=== PATIENT | male | born 1975 | race Caucasian/White ===

== ENCOUNTER 2020-09-01 11:52 | Emergency (ER) | payer BC, OTHER, SELFPAY ==
[2020-09-01] VITALS (11 sets, daily range): BP systolic 118–187; BP diastolic 56–83; PULSE 62–88; RESP 12–14; TEMP 36.2; O2SAT 93–98; BMI 33.0
--- NOTE | 2020-09-01 | DI.MRI.S_ITS ---
PROCEDURE: MR THORACIC SPINE WO/W CON INDICATIONS: BACK PAIN TECHNIQUE: Noncontrast sagittal T1 spin echo and T2 fast spin echo, sagittal STIR, axial T1 and T2 fast spin echo through the thoracic spine. After the administration of contrast, axial and sagittal T1 spin echo with fat saturation through the thoracic spine. COMPARISON: [facility], , MR LUMBAR SPINE WO/W CON, 09/01/2020, 13:20. FINDINGS: Image quality: Excellent. Alignment and curvature: There is normal bony alignment. Marrow: Marrow is of normal overall signal. Increased T1 and T2 signal is present at T8 most suggestive of hemangioma. No acute vertebral body compression fractures. Spinal cord: Visualized spinal cord is of normal signal and size, without abnormal enhancement. Paraspinous soft tissues: No paravertebral masses or abnormal enhancement. Miscellaneous: The foramina appear widely patent at all scanned levels. Minimal disc bulges noted at T2-3, , T4-5, T5-6, posterior left posterior paracentral protrusion is present at T3-4, posterior central protrusion at T7-8. There is indentation of the anterior thecal sac as well as cord at T3-4. Similar more prominent appearance is noted at T7-8 with overall [id number] spinal stenosis. IMPRESSION: Multilevel disc bulges and protrusions most prominent at T3-4 and T7-8. Dictated by: Lubna Navarro M.D. on 09/01/2020 at 13:45 Approved by: Lubna Navarro M.D. on 09/01/2020 at 14:23
--- NOTE | 2020-09-01 12:49 | PC.NURSE ---
patient was moving stuff at home on Tuesday. 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 woke up Tuesday and lost bladder control. His leg pain is going down his left leg and he feels lesser sensation in his left leg.
--- NOTE | 2020-09-01 13:14 | ED_ITS ---
HPI - Back Pain/Injury General Chief Complaint: Back Pain/Injury Stated Complaint: Back pain possible slipped disc Time Seen by Provider: 09/01/20 13:00 Source: patient Mode of arrival: Ambulatory Limitations: no limitations History of Present Illness HPI Narrative: Patient is a 45-year-old male who over the past several years has had intermittent episodes with lower back pain. He has seen his primary doctor for this and was told to take ibuprofen. At the end of last week he was at home working when he was putting in a dresser drawer and had a sudden onset of left- sided lower back pain. No fevers. Went to an outside facility over the weekend and reported to have x-rays performed and was sent home with pain medication. He states that his symptoms have not improved and 1 time over the weekend he had an episode of urinary incontinence. He states that the pain is bilateral but is left more than right. He has taken a couple doses of the pain medication with minimal improvement. Related Data Previous Rx's Medication Instructions Recorded cyclobenzaprine 10 mg PO TID PRN #14 tab 09/01/20 hydrocodone-acetaminophen 1 tab PO Q4-6H PRN #10 tab 09/01/20 prednisone 40 mg PO DAILY 3 Days #6 tab 09/01/20 Allergies Allergy/AdvReac Type Severity Reaction Status Date / Time No Known Drug Allergies Allergy Verified 09/01/20 12:04 Review of Systems Constitutional Constitutional: Denies fever(s) and Denies headache(s) ENT Ears, Nose, Mouth, and Throat: Denies headache(s) Cardiovascular Cardiovascular: Denies chest pain and Denies dyspnea Respiratory Respiratory: Denies dyspnea Gastrointestinal Gastrointestinal: Denies abdominal pain Genitourinary Genitourinary: Reports urinary incontinence Genitourinary: Reports urinary incontinence Musculoskeletal Musculoskeletal: Reports back pain, Reports numbness, Reports radiating pain into limb and Reports tingling Integumentary/Breasts Skin/Breast: Denies rash Neurologic Neurologic: Denies behavioral changes, Denies confusion, Denies headache(s), Reports numbness and Reports tingling Psychiatric Psychiatric: Denies behavioral changes and Denies confusion Hematologic/Lymphatic On Anticoagulants: No Allergic/Immunologic Allergic/Immunologic: Denies urticaria Patient History Medical History IBS (irritable bowel syndrome) Social History Smoking Status: Former smoker Smoking Status: Former smoker alcohol intake frequency: 0-2 drinks per day Substance Use Type: does not use Exam Initial Vital Signs Initial Vital Signs: Vital Signs Temperature 97.1 F L 09/01/20 12:01 Pulse Rate 62 09/01/20 12:01 Respiratory Rate 14 09/01/20 12:01 Blood Pressure 187/78 H 09/01/20 12:01 Pulse Oximetry 98 09/01/20 12:01 Const General: cooperative and comfortable Limitations: mental status not altered HENMT Head: normal to inspection and normocephalic Resp Effort & Inspection: normal respiratory effort Cardio Rate: regular rate GI Inspection: non-distended Palpation: soft Back/Spine/Pelvis Cervical Spine: No cervical muscular tenderness Thoracic/Lumbar Spine: No paraspinal tenderness, No thoracic spinal tenderness and No lumbar spinal tenderness Skin Lesions: no lesions Rashes: no rashes Neuro General: patient alert, patient awake and patient oriented x3 Cognition: normal cognition Speech: speech normal Sensory Exam: no sensory deficits noted (Decreased sensation left lower extremity and L5-S1 distribution) Extrem General: normal to inspection, capillary refill normal and No edema Psych Appearance: grossly normal and well kempt Course Orders Ordered: ED Orders 09/01/20 13:15 MR lumbar spine wo/w con Stat Discontinued Medications Hydromorphone HCl (Hydromorphone 1 Mg Inj) 1 mg IV NOW ONE Stop: 09/01/20 13:17 Last Admin: 09/01/20 13:24 Dose: 1 mg Documented by: RAJIV Ketorolac Tromethamine (Ketorolac 60 Mg/2 Ml Vial) 30 mg IV NOW ONE Stop: 09/01/20 13:17 Last Admin: 09/01/20 13:25 Dose: 30 mg Documented by: RAJIV Ondansetron HCl (Ondansetron 4 Mg/2 Ml Inj) 4 mg IV NOW ONE Stop: 09/01/20 13:17 Last Admin: 09/01/20 13:25 Dose: 4 mg Documented by: RAJIV Vital Signs Vital signs: Vital Signs - 8 hr 09/01/20 12:01 09/01/20 12:36 09/01/20 12:46 Temperature 97.1 F L Pulse Rate 62 75 71 Respiratory Rate 14 Blood Pressure 187/78 H 131/83 Pulse Oximetry 98 96 96 09/01/20 13:00 09/01/20 13:30 09/01/20 14:20 Temperature Pulse Rate 73 70 88 Respiratory Rate Blood Pressure 132/75 Pulse Oximetry 96 95 93 09/01/20 14:22 09/01/20 14:30 09/01/20 15:00 Temperature Pulse Rate 82 73 72 Respiratory Rate Blood Pressure 125/68 118/64 Pulse Oximetry 95 94 95 09/01/20 15:01 09/01/20 15:18 Temperature Pulse Rate 73 71 Respiratory Rate 12 Blood Pressure 118/56 L 118/56 L Pulse Oximetry 94 98 MDM - Back Pain/Injury Imaging Data Thoracic spine MRI: Radiologist's Impression: [address] [id number] Resonance ReportSigned Patient: Travis Morataya CMR#: [id number]: 1975Acct:[id number]/Sex: 45 / MDate of Service: 09/01/20Loc: EDAccession Number: [id number] Procedure: MR thoracic spine wo/w con Ordering Provider: Jordan Nogueira D.O. PROCEDURE: MR THORACIC SPINE WO/W CON INDICATIONS: BACK PAIN TECHNIQUE: Noncontrast sagittal T1 spin echo and T2 fast spin echo, sagittal STIR, axial T1 and T2 fast spin echo through the thoracic spine. After the administration of contrast, axial and sagittal T1 spin echo with fat saturation through the thoracic spine. COMPARISON: [facility], , MR LUMBAR SPINE WO/W CON, 09/01/2020, 13:20. FINDINGS: Image quality: Excellent. Alignment and curvature: There is normal bony alignment. Marrow: Marrow is of normal overall signal. Increased T1 and T2 signal is present at T8 most suggestive of hemangioma. No acute vertebral body compression fractures. Spinal cord: Visualized spinal cord is of normal signal and size, without abnormal enhancement. Paraspinous soft tissues: No paravertebral masses or abnormal enhancement. Miscellaneous: The foramina appear widely patent at all scanned levels. Minimal disc bulges noted at T2-3, , T4-5, T5-6, posterior left posterior paracentral protrusion is present at T3-4, posterior central protrusion at T7-8. There is indentation of the anterior thecal sac as well as cord at T3-4. Similar more prominent appearance is noted at T7-8 with overall [id number] spinal stenosis. IMPRESSION: Multilevel disc bulges and protrusions most prominent at T3-4 and T7-8. Dictated by: Lubna Navarro M.D. on 09/01/2020 at 13:45 Approved by: Lubna Navarro M.D. on 09/01/2020 at 14:23 Lumbar spine MRI: Radiologist's Impression: [address] [id number] Resonance ReportSigned Patient: Travis Morataya CMR#: [id number]: 1975Acct:[id number]/Sex: 45 / MDate of Service: 09/01/20Loc: EDAccession Number: [id number] Procedure: MR lumbar spine wo/w con Ordering Provider: Jordan Nogueira D.O. PROCEDURE: MR LUMBAR SPINE WO/W CON INDICATIONS: low back pain with bladder incontinence eval for cauda equin TECHNIQUE: Noncontrast sagittal T1 spin echo and T2 fast spin echo, sagittal STIR, axial T1 and T2 fast spin echo through the lumbar spine. In cases with scoliosis, additional coronal T2 fast spin echo may be performed. After the administration of contrast, sagittal and axial T1 spin echo with fat saturation through the lumbar spine. COMPARISON: None. FINDINGS: Image quality: Excellent. Alignment and curvature: Normal lumbar vertebral body height and alignment. Marrow: No suspicious focal marrow signal abnormality. No bone marrow edema. No abnormal enhancement within the vertebral column after IV administration of contrast. Spinal cord: Normal position and appearance of the conus. No abnormal intradural or extradural enhancement on postcontrast images. Regional soft tissues: No paravertebral masses or abnormal enhancement. T12-L1: No spinal canal or neural foraminal stenosis. No significant degenerative change. L1-L2: No spinal canal or neural foraminal stenosis. No significant degenerative change. L2-L3: No spinal canal or neural foraminal stenosis. No significant degenerative change. L3-L4: No spinal canal or neural foraminal stenosis. Disc bulge minimally flattens the ventral thecal sac without mass effect upon the traversing L4 nerve roots. Mild facet osteoarthropathy. L4-L5: Diffuse disc bulge with a superimposed broad-based posterior disc protrusion, most pronounced in the left paracentral and left subarticular zones. Mild displacement of the descending L5 nerve roots within both subarticular zones, left greater than right (series 6, image 31, for example). No neural foraminal stenosis. Mild facet osteoarthropathy. L5-S1: Diffuse disc bulge with a superimposed broad-based posterior disc extrusion in the left paracentral and left subarticular zones. Displacement of the descending left S1 nerve roots within the left subarticular zone (series 6, image 36, and series 3, image 10). No neural foraminal stenosis. IMPRESSION: Degenerative changes at L4-L5 and L5-S1 with mass effect upon the descending of left L5 and S1 nerve roots at these levels, respectively, as described above. Correlate for any corresponding radicular symptoms. Annular fissures of the L4-L5 disc and L5-S1 disc, potential sources of nonrad icular axial back pain. No abnormal enhancement or other finding to indicate metastatic disease in the lumbar spine. Dictated by: Messi Handy M.D. on 09/01/2020 at 14:28 Approved by: Messi Handy M.D. on 09/01/2020 at 14:32 [facility] Narrative Medical decision making narrative: Lower back pain bilateral with left being gr eater than right. The radiculopathy in his lower extremities consistent with the L5-S1 nerve root distribution this does correspond to the findings on the MRI. This was ordered secondary to the episode of urinary incontinence however there is no signs of cauda equina. Had a long discussion with him and his regarding his symptoms. Will send home on prednisone. We did discuss use of anti-inflammatories afterwards. Will send home with muscle relaxers but he is instructed to stop taking these if they are not improving any of his symptoms. Also refill some of his pain medication. Instructed to contact his primary provider for a follow-up to discuss further evaluation such as physical therapy/surgical consultation. He was given return precautions and follow-up instructions. He expressed understanding and agreement. Discharge Plan Departure Patient Disposition: Home Clinical Impression: Acute back pain with radiculopathy Instructions: DI for Back Pain With Sciatica Activity Restrictions/Additional Instructions: I recommend that you contact your primary provider for a follow-up as your most likely going to need a referral for physical therapy. Take the medications as directed. Return to the emergency department for any new or worsening symptoms. Take the prednisone as directed. Afterwards start taking another anti- inflammatories such as Motrin/ibuprofen or Naprosyn. Prescriptions: New prednisone 20 mg tablet 40 mg PO DAILY 3 Days Qty: 6 RF: 0 cyclobenzaprine 10 mg tablet 10 mg PO TID PRN (Reason: muscle spasm) Qty: 14 RF: 0 hydrocodone-acetaminophen 5-325 mg tablet 1 tab PO Q4-6H PRN (Reason: pain) Qty: 10 RF: 0 Stand Alone Forms: Work Release Note
[2020-09-01] MEDS: HYDROMORPHONE 1 MG INJ IV (13:24)
[2020-09-01] MEDS: ONDANSETRON 4 MG/2 ML INJ IV (13:25)
[2020-09-01] MEDS: KETOROLAC 60 MG/2 ML VIAL 30 MG IV (13:25)
== END 2020-09-01 15:23 | disposition home or self-care (01) ==
PROVIDERS: Emergency Provider Emergency Medicine
DX: M54.16 Radiculopathy, lumbar region (principal)
CPT/HCPCS: 36415; 72157; 72158; 96374; 96375; 99284; J1170; J1885; J2405

== ENCOUNTER → 2020-09-24 06:57 | Outpatient (CLI) | payer OTHER, SELFPAY ==
--- NOTE | 2020-09-24 | DI.MRI.S_ITS ---
PROCEDURE: MR WRIST RT WO/W CON INDICATIONS: ABNORMAL FINDING TECHNIQUE: Noncontrast coronal proton density fast spin echo and T2 fast spin echo with fat saturation; coronal 3-D gradient echo, axial T1 spin echo and T2 fast spin echo with fat saturation, axial T1 spin echo with fat saturation, sagittal T1 spin echo through the wrist. Post-contrast axial, coronal, and sagittal T1 spin echo with fat saturation through the wrist. COMPARISON: [facility], RG, XR WRIST 3V RIGHT, 07/28/2020, 10:28. FINDINGS: Approved by: Pantera Marc M.D. on 09/24/2020 at 10:34 In the area of radiographic seen lucency in the region of the radial styloid base, there is a focus of T2 hyperintensity measuring 8 x 5 mm on coronal pulse sequences. This focus demonstrates intrinsic T1 hyperintensity on precontrast T1 weighted pulse sequences. Therefore, no definite enhancement. This could reflect blood products or hemorrhagic/proteinaceous internal contents although technically nonspecific. There appears to be fat signal intensity in this area. No definite cortical disruption is seen. No soft tissue mass identified. 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 Minimal tenosynovitis involving the extensor carpi radialis longus and brevis tendons although quite subtle. Otherwise the flexor and extensor tendons appear grossly intact. Muscle signal intensity within normal limits. Scattered degenerative subchondral sclerosis and spurring. IMPRESSION: Predominantly fat signal intensity seen in the region of the lucency on the prior radiographs from 07/28/20. This is suggestive of intraosseous lipoma. Additional superimposed smaller focus measuring 8 mm demonstrating atypical signal changes which could reflect blood products or proteinaceous internal contents, technically nonspecific. No definite enhancement as detailed above. Recommend correlation to point tenderness. If there is pain in this area recommend surgical consultation and management. Otherwise, at least 2 year radiographic follow-up at six-month intervals is recommended to document long-term stability. A bone scan could also be performed if there is persistent clinical uncertainty. 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
== END ==
PROVIDERS: PCP Family Medicine; Referring Provider Family Medicine; Visit Provider Family Medicine
DX: R93.6 Abnormal findings on diagnostic imaging of limbs (principal); M18.11 Unilateral primary osteoarthritis of first carpometacarpal joint, right hand; M19.031 Primary osteoarthritis, right wrist
CPT/HCPCS: 73223

== ENCOUNTER → 2022-06-12 10:32 | Outpatient (CLI) | payer OTHER, SELFPAY ==
--- NOTE | 2022-06-12 10:34 | DI.MRI.S_ITS ---
PROCEDURE: MR SHOULDER LT WO CON INDICATIONS: Pain in left shoulder TECHNIQUE: Noncontrast oblique coronal T2 fast spin echo with fat saturation, oblique sagittal T1 spin echo and T2 fast spin echo with fat saturation, axial T1 spin echo and T2 fast spin echo with fat saturation through the shoulder. COMPARISON: [facility], CR, XR SHOULDER 2+ VIEWS LEFT, 02/13/2020, 9:13. FINDINGS: Image quality: Excellent. Rotator cuff: The supraspinatus and infraspinatus demonstrates mild tendinopathy but appear intact. The subscapularis and teres minor also appear intact. Sagittal images demonstrate no fatty muscle atrophy. Bones and bursae: No bone marrow contusions or fractures. There is moderate to severe acromioclavicular joint degeneration with prominent periarticular soft tissue and bone marrow edema. The acromion demonstrates slight lateral downsloping, without an os acromiale. Minimal subacromial/subdeltoid bursal fluid is present. Capsule and soft tissues: Labrum appears intact. The long head of the biceps tendon demonstrates normal location and morphology. The rotator interval appears normal, without fibrosis. The coracohumeral ligament is normal in thickness. IMPRESSION: 1. 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 2. Minimal subacromial/subdeltoid bursal fluid. 3. Mild tendinopathy of the superior cuff without a discrete tear. Dictated by: Idris Wilcox M.D. on 06/14/2022 at 1:50 Approved by: Idris Wilcox M.D. on 06/14/2022 at 1:54
== END ==
PROVIDERS: PCP Family Medicine; Referring Provider Registered Nurse; Visit Provider Registered Nurse
DX: M19.012 Primary osteoarthritis, left shoulder (principal); M25.512 Pain in left shoulder
CPT/HCPCS: 73221